=== PATIENT | male | born 1980 | race Caucasian/White ===

== ENCOUNTER 2016-05-01 15:08 | Emergency (ER) | payer SELFPAY ==
[2016-05-01 15:13] VITALS: BP 153/87; BMI 34.4
--- NOTE | 2016-05-01 15:45 | DR.GENAD ---
HPI - PCP Primary Care Physician: NFMegha - Complaint/Symptoms Chief Complaint:: PATIENT STATED HE HAS BEEN BREAKING OUT ON HIS ARMS,HANDS AND FEET. IT HAS BEEN GOING ON FOR SEVERAL DAYS BUT TODAY IT HAS BEEN WORSE. - Source History Provided: Patient - Mode of Arrival Mode of Arrival: Ambulatory - Timing Onset of Chief Complaint: 04/19/16 PMH - PMH Past Medical History: No Past Surgical History: Yes Surgical History: Abdominal Surgery Past Surgical History Comment: ABD TRAUMA - Family History History of Family Medical Conditions: No - Social History Does patient currently use any type of tobacco product: No Have you used tobacco products in the last 12 months: No Type of Tobacco Use: None Does any household member use tobacco: No Alcohol Use: None Do you use any recreational Drugs:: No Lives With: Family Lives Where: Home - infectious screening In the last 2 months have you had wt loss of >10#?: NO Have you had fever, night sweats or hemotysis?: No Have you traveled outside the country in the last 6 months?: No Isolation: Standard ROS - Review of Systems Constitutional: No Symptoms Reported Eyes: No Symptoms Reported ENTM: No Symptoms Reported Respiratoy: No Symptoms Reported Cardiovascular: No Symptoms Reported Gastrointestinal/Abdominal: No Symptoms Reported Genitourinary: No Symptoms Reported Neurological: No Symptoms Reported Musculoskeletal: No Symptoms Reported Integumentary: Rash (on arms and feet) Hematologic/Lymphatic: No Symptoms Reported Endocrine: No Symptoms Reported Psychiatric: No Symptoms Reported All Other Systems: Reviewed and Negative PE - Vital Signs Vitals: Temperature 98.4 F Pulse Rate 78 Respiratory Rate 16 Blood Pressure 153/87 O2 Sat by Pulse Oximetry 100 - General Limitations: No Limitations General Appearance: Alert, In No Apparent Distress - Head Head Exam: Normal Inspection, Atraumatic - Eyes Eye exam: Normal Appearance, PERRL, EOMI - ENT ENT Exam: Normal Exam External Ear Exam: Normal External Inspection TM/Canal Exam: Bilateral Normal Nose Exam: Normal Nose Exam Mouth Exam: Normal Inspection Throat Exam: Normal Inspection - Neck Neck Exam: Normal Inspection - Chest Chest Inspection: Normal Inspection - Respiratory Respiratory Exam: Normal Lung Sounds Bilat Respiratory Exam: Bilateral Clear to Auscultation - Cardiovascular Cardiovascular Exam: Regular Rate, Normal Rhythm - Abdominal Exam Abdominal Exam: Normal Inspection, Normal Bowel Sounds - Back Back Exam: Normal Inspection, Full ROM - Neurologic Neurological Exam: Alert, Oriented X3 - Psychiatric Psychiatric Exam: Normal Affect, Normal Mood - Skin Skin Exam: Warm, Dry, Other (toes moist, bilster formation digit #3-4 left, scaly, ) Course - Reevaluation 1st: Unchanged - Diagnosis Discharge Problem: Contact dermatitis Qualifiers: Contact dermatitis type: irritant Contact dermatitis trigger: unspecified trigger Qualified Code(s): L24.9 - Irritant contact dermatitis, unspecified cause - Discharge Plan Condition: Stable - Follow ups/Referrals Follow ups/Referrals: NFD,None [Primary Care Provider] - 3 days - Instructions
== END 2016-05-01 15:58 | disposition home or self-care (01) ==
LOC: ER 15:08
DX: L24.89 Irritant contact dermatitis due to other agents (principal)
CPT/HCPCS: 99281; 99282